=== PATIENT | male | born 1980 | race Caucasian/White ===

== ENCOUNTER 2018-10-17 07:38 | Day surgery (SDC) | payer MEDICAID, SELFPAY ==
--- NOTE | 2018-10-17 | GASB_PTH ---
PATIENT: NIC PINTO LOC: EN U#:[id number] AGE/SX: 38/M ROOM: RE10/17/[address]: Dr. Nic Mojica MD : 1980 BED: DIS: 10/17/2018 SPEC #: [id number] RECD: 10/17/18 11:15 STATUS: VANIA RYAN #: [id number] GUILHERME: 10/17/18 00:[address]: Nic Mojica DEPT: SURGICAL PATHOLOGY RECD BY: Cesar Key ENTERED: 10/17/18 11:15 SP TYPE: Gastric Bx OTHR DR: ELVIN Fraire Tissues: Gastric mucous membrane Procedures: Surgery Specimen Level IV HEADER OPERATION: Colonoscopy, EGD ([facility] [place] PRE[place]OP DIAGNOSIS: Personal history of colonic polyps, esophageal dysphagia TISSUE SUBMITTED: Antral biopsy and H. pylori MICROSCOPIC DIAGNOSIS Antral biopsy: Mild gastritis. See microscopic description and comment. SJ:yusuf 10/18/18 COMMENT The results of immunohistochemistry for Helicobacter pylori will be reported separately ([id number]). MICROSCOPIC DESCRIPTION Slides are reviewed. The specimen shows fragments of gastric mucosa with chronic inflammatory cell infiltrates in the lamina propria consisting of lymphocytes and plasma cells, consistent with mild chronic gastritis. GROSS DESCRIPTION Received in fixative is one container labeled with the patient's name and designated antral biopsy and H. pylori. The specimen consists of one irregular fragment of light eagle soft tissue that measures 0.6 x 0.2 x 0.1 cm. The specimen is totally submitted in one cassette. / SJ:rg 10/17/18 TC:3 CPT: 41294
[2018-10-17 07:54] VITALS: BP 103/67; PULSE 73; RESP 16; TEMP 37.1; O2SAT 97; BMI 25.7
--- NOTE | 2018-10-17 08:30 | IMM_PTH ---
PATIENT: NIC PINTO LOC: EN U#:[id number] AGE/SX: 38/M ROOM: RE10/17/[address]: Dr. Nic Mojica MD : 1980 BED: DIS: 10/17/2018 SPEC #: [id number] RECD: 10/17/18 11:36 STATUS: VANIA REQ #: [id number] GUILHERME: 10/17/18 08:[address]: Nic Mojica DEPT: IMMUNOHISTOCHEMISTRY RECD BY: Anjelica Cazares ENTERED: 10/17/18 11:36 SP TYPE: IMMUNO OTHR DR: ELVIN Fraire Tissues: Stomach, NOS Procedures: H Pylori (initial) PHYSICIAN & INSTITUTION [place] [id number] SPECIMEN INFORMATION: Tissue Source: Antral biopsy Clinical Info: Colonic polyps, esophageal dysphagia Specimen Number: [id number] CPT code: 53209 METHODOLOGY: Deparaffinized sections of prefer/formalin-fixed tissue or PAP/DQ stained slides are incubated with monoclonal/polyclonal antibodies/oligonucleotide probes. Localization is made via biotin free immunoperoxidase method. Appropriate controls are performed and reacted as expected. Results on target cell population are indicated in the following table: RESULTS: ANTIBODY / CLONE RESULT H Pylori (polyclonal) negative These tests were developed and their performance characteristics determined by [facility]. They may not have been cleared or approved by the U.S. Food and Drug Administration. The FDA has determined that such clearance or approval is not necessary. INTERPRETATION: Antral biopsy: Negative for Helicobacter pylori organisms. MEDARDO:yusuf 10/18/18
[2018-10-17 09:00] VITALS: BP 103/67; BP 88/57; PULSE 89; RESP 16; TEMP 36.4; O2SAT 98
--- NOTE | 2018-10-17 09:01 | OP.ENDO_ITS ---
Patient Name: Nic Velásquez Procedure Date: 10/17/2018 8:33 AM Date of : 1980 Age: 38 Procedure: Upper GI endoscopy Indications: Esophageal dysphagia Providers: Nic Mojica MD Medicines: See the Anesthesia note for documentation of the administered medications Patient Profile: This is a 38 year old male. Refer to note in patient chart for documentation of history and physical. Complications: No immediate complications. Procedure: Pre-Anesthesia Assessment: - Prior to the procedure, a History and Physical was performed, and patient medications and allergies were reviewed. The patient's tolerance of previous anesthesia was also reviewed. The risks and benefits of the procedure and the sedation options and risks were discussed with the patient. All questions were answered, and informed consent was obtained. Prior Anticoagulants: The patient has taken no previous anticoagulant or antiplatelet agents. ASA Grade Assessment: II - A patient with mild systemic disease. After reviewing the risks and benefits, the patient was deemed in satisfactory condition to undergo the procedure. After obtaining informed consent, the endoscope was passed under direct vision. Throughout the procedure, the patient's blood pressure, pulse, and oxygen saturations were monitored continuously. The gastroscope was introduced through the mouth, and advanced to the second part of duodenum. The upper GI endoscopy was accomplished without difficulty. The patient tolerated the procedure well. Scope In: 8:40:43 AM Scope Out: 8:44:35 AM Total Procedure Duration Time 0 hours 3 minutes 52 seconds Findings: A small hiatal hernia was present. Localized minimal inflammation characterized by erythema was found in the gastric antrum. Biopsies were taken with a cold forceps for Helicobacter pylori testing. The examined duodenum was normal. No biopsies or other specimens were collected for this exam. Impression: - Small hiatal hernia. - Gastritis. Biopsied. - Normal examined duodenum. No specimens collected. Recommendation: - Discharge patient to home. - Resume previous diet. - Continue present medications. - Await pathology results. - Perform routine esophageal manometry at appointment to be scheduled. Procedure Code(s): --- Professional --- 38419, Esophagogastroduodenoscopy, flexible, transoral; with biopsy, single or multiple Diagnosis Code(s): --- Professional --- K44.9, Diaphragmatic hernia without obstruction or gangrene K29.70, Gastritis, unspecified, without bleeding R13.14, Dysphagia, pharyngoesophageal phase CPT copyright 2017 [employer] [employer]. All rights reserved. The codes documented in this report are preliminary and upon anesthesiology crna review may be revised to meet current compliance requirements. MD Nic Jensen MD 10/17/2018 9:01:07 AM This report has been signed electronically. Number of Addenda: 0 Note Initiated On: 10/17/2018 8:33 AM
--- NOTE | 2018-10-17 09:03 | OP.ENDO_ITS ---
Patient Name: Nic Velásquez Procedure Date: 10/17/2018 8:44 AM Date of : 1980 Age: 38 Procedure: Colonoscopy Indications: High risk colon cancer surveillance: Personal history of colonic polyps Providers: Nic Mojica MD Medicines: See the Anesthesia note for documentation of the administered medications Patient Profile: This is a 38 year old male. Refer to note in patient chart for documentation of history and physical. Last Colonoscopy: 2011. Complications: No immediate complications. Procedure: Pre-Anesthesia Assessment: - Prior to the procedure, a History and Physical was performed, and patient medications and allergies were reviewed. The patient's tolerance of previous anesthesia was also reviewed. The risks and benefits of the procedure and the sedation options and risks were discussed with the patient. All questions were answered, and informed consent was obtained. Prior Anticoagulants: The patient has taken no previous anticoagulant or antiplatelet agents. ASA Grade Assessment: II - A patient with mild systemic disease. After reviewing the risks and benefits, the patient was deemed in satisfactory condition to undergo the procedure. - Prior to the procedure, a History and Physical was performed, and patient medications and allergies were reviewed. The patient's tolerance of previous anesthesia was also reviewed. The risks and benefits of the procedure and the sedation options and risks were discussed with the patient. All questions were answered, and informed consent was obtained. Prior Anticoagulants: The patient has taken no previous anticoagulant or antiplatelet agents. ASA Grade Assessment: II - A patient with mild systemic disease. After reviewing the risks and benefits, the patient was deemed in satisfactory condition to undergo the procedure. After I obtained informed consent, the scope was passed under direct vision. Throughout the procedure, the patient's blood pressure, pulse, and oxygen saturations were monitored continuously. The colonoscope was introduced through the anus and advanced to the cecum, identified by appendiceal orifice and ileocecal valve. The colonoscopy was performed without difficulty. The patient tolerated the procedure well. The quality of the bowel preparation was good. Scope In: 8:47:18 AM Scope Withdrawal Time 0 hours 6 minutes 10 seconds Scope Out: 8:57:09 AM Total Procedure Duration Time 0 hours 9 minutes 51 seconds Findings: The entire examined colon appeared normal on direct and retroflexion views. Impression: - The entire examined colon is normal on direct and retroflexion views. - No specimens collected. Recommendation: - Discharge patient to home. - Resume previous diet. - Continue present medications. - Repeat colonoscopy in 10 years for screening purposes. - Return to my office in 1 week. Procedure Code(s): --- Professional --- 65334, Colonoscopy, flexible; diagnostic, including collection of specimen(s) by brushing or washing, when performed (separate procedure) Diagnosis Code(s): --- Professional --- Z86.010, Personal history of colonic polyps CPT copyright 2017 [employer]. All rights reserved. The codes documented in this report are preliminary and upon tanyard worker review may be revised to meet current compliance requirements. MD Nic Jensen MD 10/17/2018 9:02:54 AM This report has been signed electronically. Number of Addenda: 0 Note Initiated On: 10/17/2018 8:44 AM
[2018-10-17 09:05] VITALS: BP 103/67; BP 97/51; PULSE 90; RESP 14; O2SAT 98
[2018-10-17 09:10] VITALS: BP 103/67; BP 78/59; PULSE 83; RESP 14; O2SAT 97
[2018-10-17 09:16] VITALS: BP 103/67; BP 91/66; PULSE 80; RESP 14; TEMP 36.5; O2SAT 98
[2018-10-17 09:53] VITALS: BP 103/67
== END 2018-10-17 09:54 | disposition home or self-care (01) ==
LOC: EN 07:39 → AC 07:41
PROVIDERS: Family Provider Physician Assistant; PCP Physician Assistant; Referring Provider Surgery; Visit Provider Surgery
PROC: 0DJD8ZZ Inspection of Lower Intestinal Tract, Via Natural or Artificial Opening Endoscopic (ICD-10-PCS; CPT 45378; principal; 2018-10-17 08:25)
DX: K29.50 Unspecified chronic gastritis without bleeding (principal); R13.14 Dysphagia, pharyngoesophageal phase; K44.9 Diaphragmatic hernia without obstruction or gangrene; Z86.010 Personal history of colon polyps
CPT/HCPCS: 43239; 45378; 88305; 88342; J7120; J2405

== ENCOUNTER → 2019-04-10 10:53 | Outpatient (CLI) | payer MEDICAID, SELFPAY ==
[2019-04-10 14:01] LABS: Amphetamine Urine VISTA NEGATIVE (<1000 ng/mL); Barbiturate Urine VISTA NEGATIVE (< 200 ng/mL); Benzodiazepine Urine VISTA NEGATIVE (< 200 ng/mL); Cocaine Urine VISTA NEGATIVE (< 300 ng/mL); Ecstacy Urine VISTA NEGATIVE (< 500 ng/mL); Methadone Urine VISTA NEGATIVE (< 300 ng/mL); PCP Urine VISTA NEGATIVE (< 25 ng/mL); THC Urine VISTA NEGATIVE (< 50 ng/mL); Vista UDS pH Range 6
== END ==
PROVIDERS: Family Provider Physician Assistant; PCP Physician Assistant; Referring Provider Registered Nurse; Visit Provider Registered Nurse
DX: F19.20 Other psychoactive substance dependence, uncomplicated (principal)
CPT/HCPCS: 80307

== ENCOUNTER 2021-07-02 14:36 | Emergency (ER) | payer MEDICAID, SELFPAY ==
[2021-07-02] VITALS (7 sets, daily range): BP systolic 103–178; BP diastolic 54–110; PULSE 71–117; RESP 15–18; TEMP 36.1; O2SAT 95–98; BMI 25.6
--- NOTE | 2021-07-02 15:16 | CT_ITS ---
EXAMINATION : Head CT w/out contrast HISTORY : Change in Mental Status COMPARISON : None. TECHNIQUE : Multiple contiguous axial images were obtained from the skull base to the vertex without intravenous contrast. A radiation dose optimization technique was used for this scan. FINDINGS : The ventricles and sulci are normal in size. There is no evidence for acute intracranial hemorrhage, mass effect, or midline shift. There is no extra-axial fluid collection. There is normal anton-white differentiation, without CT evidence of acute ischemia or infarct. The skull base and calvarium are unremarkable. The orbits are unremarkable. The paranasal sinuses are clear. The mastoid air cells are well-aerated. The soft tissues are unremarkable. CT/Brain/Head without Contrast IMPRESSION: No acute intracranial abnormality. Electronically Signed: Anant Mccarthy MD at 19:15 EDT Tel , Service support ,
--- NOTE | 2021-07-02 15:16 | EX.ED.VIS.PS ---
HPI <Dr. North Hong MD - Last Filed: 07/02/21 17:40> HPI - Psych History of Present Illness Chief Complaint: Mental Health Informant: patient Onset/Context/Timing Onset: - (unclear) Associated Symptoms Associated Symptoms - Psych: Positive for Confusion (I'm disoriented.), Paranoia and Auditory Hallucinations; Negative for Suicidal Thoughts and Visual Hallucinations Narrative Narrative: Patient presents saying that he feels he is dehydrated because he has not been drinking a lot of fluids although he denies having any vomiting, diarrhea, or any other obvious loss of fluids, and admittedly is paranoid. He states he also feels disoriented, and he is having trouble trusting people who are offering to help him. He states he has some auditory hallucinations and people are watching him from above, at one point he told triage that he needed to speak to someone with the [employer]. He said someone gave him a crystal that he partially ingested and partially inhaled and he thinks it might be messing with him and he needs to know what it was. Other than this he has used no substances intentionally. When asked about his medical history, he states that it is not important and he will talk to me about it when he is right in the head. He also states when asked multiple questions especially about illicit substance use, that there is a conspiracy to make me part of a conspiracy. [facility] <Dr. North Hong MD - Last Filed: 07/02/21 17:40> [facility] Medical History (Updated 07/02/21 @ 22:[address] Rik Rojo MD) Abdominal pain Asthma Esophageal reflux RONNY (obstructive sleep apnea) Home Medications omeprazole 20 mg PO DAILY 07/03/16 [History Last Taken 10/16/18] albuterol sulfate 90 mcg/actuation aerosol inhaler 2 puff INHALATION Q6H PRN 09/21/18 [History Last Taken Unknown] aripiprazole 5 mg tablet 5 mg PO DAILY 09/21/18 [History Last Taken 10/16/18] bisacodyl 5 mg tablet,delayed release 20 mg PO ONCE #4 tab 09/21/18 [Rx Last Taken 10/16/18] polyethylene glycol 3350 17 gram/dose oral powder See Rx Instructions PO .COMPLEX #238 g 09/21/18 [Rx Last Taken 10/16/18] Allergy/AdvReac Type Severity Reaction Status Date / Time No Known Allergies Allergy Verified 07/02/21 14:40 Surgical History Hx of colonoscopy Hx of right inguinal hernia repair Hx of tooth extraction Hx of varicose vein ligation and stripping Social History Smoking Status: Current every day smoker tobacco type: cigarettes second hand exposure: Yes alcohol intake: never substance use type: methamphetamine caffeine: Yes frequency: does not exercise ROS <Dr. North Hong MD - Last Filed: 07/02/21 17:40> ROS ED Constitutional Constitutional ED: Denies chills or fever(s) Eyes Eyes: Denies change in vision or diplopia ENT ENT ED: Denies rhinorrhea or sore throat Cardiovascular Cardiovascular: Denies chest pain or palpitations Respiratory/Chest Respiratory/Chest: Denies cough or dyspnea Gastrointestinal Gastrointestinal: Denies abdominal pain, diarrhea, nausea or vomiting Genitourinary Genitourinary ED: Denies dysuria or hematuria Musculoskeletal Musculoskeletal: Denies back pain or neck pain Integumentary Denies abscess or rash Neurologic Neurologic: Denies headache(s), paresthesias or weakness Psychiatric Psychiatric: Reports anxiety, auditory hallucinations, confusion and paranoia; Denies homicidal ideation, suicidal ideation or suicidal thoughts EXAM <Dr. North Hong MD - Last Filed: 07/02/21 17:40> Physical Exam Const Vital Signs: 07/02/21 14:36 07/02/21 16:00 07/02/21 17:00 Temperature 96.9 F L Temperature Source Temporal Pulse Rate 117 H Respiratory Rate 18 17 16 Blood Pressure 178/110 H Blood Pressure Mean 132 Pulse Ox 97 Oxygen Delivery Method Room Air Room Air Room Air 07/02/21 18:00 07/02/21 19:25 07/02/21 21:34 Temperature Temperature Source Pulse Rate 103 H 71 Respiratory Rate 16 15 15 Blood Pressure 103/62 126/54 H Blood Pressure Mean 75 78 Pulse Ox 95 98 Oxygen Delivery Method Room Air Room Air Room Air Positive well nourished and well developed General Appearance ED: well developed and NAD HEENT Reports moist mucous membranes normocephalic and atraumatic Eyes PERRL and EOMs intact bilaterally General Eye ED: Negative for scleral icterus Neck no lymphadenopathy and supple Resp normal respiratory effort and clear to auscultation bilaterally Cardio no murmurs Rate: regular rate Rhythm: regular rhythm GI non-tender and non-distended Auscultation: normoactive bowel sounds Palpation: soft Back/Spine no CVA tenderness and normal ROM Extremity normal to inspection General Extremety ED: Negative for edema General Extremity: Negative for edema Neuro oriented x3, CN's II-XII intact bilaterally, no sensory deficits noted and gait normal Sensorium / Orientation: alert Motor Exam: strength 5/5 throughout Psych cooperative and denies homicidal ideation Attitude: paranoid and agitated Activity / Motor Behavior: appropriate eye contact, psychomotor agitation, disorganized and restless Thought Process: disorganized and loose associations Thought Content: No suicidality Skin Lesions: no lesions Rashes: no rashes <Dr. Rik Rojo MD - Last Filed: 07/02/21 22:55> Physical Exam Const Vital Signs: 07/02/21 14:36 07/02/21 16:00 07/02/21 17:00 Temperature 96.9 F L Temperature Source Temporal Pulse Rate 117 H Respiratory Rate 18 17 16 Blood Pressure 178/110 H Blood Pressure Mean 132 Pulse Ox 97 Oxygen Delivery Method Room Air Room Air Room Air 07/02/21 18:00 07/02/21 19:25 07/02/21 21:34 Temperature Temperature Source Pulse Rate 103 H 71 Respiratory Rate 16 15 15 Blood Pressure 103/62 126/54 H Blood Pressure Mean 75 78 Pulse Ox 95 98 Oxygen Delivery Method Room Air Room Air Room Air MDM <Dr. North Hong MD - Last Filed: 07/02/21 17:40> [facility] Narrative Medical decision making narrative: Patient is mildly prerenal for which he was given a liter of IV fluids, a dose of oral potassium was offered to him, and he has a mild leukocytosis for which a urinalysis and chest x-ray were obtained. Patient was amenable to taking a dose of potassium, but he was very apprehensive about getting a CT of the head, and stated to the diesel technician I do not consent. Therefore I held off on that instead of pushing the issue, I do not think an acute neurologic process is likely here. The patient is agitated. He is swelling to give us urine, but after trying he was unable. He is drinking fluids and almost done with a liter of IV fluids so that he is able to give us a specimen. Also attempting to obtain a Covid swab to rule that out. At this time, I am concerned patient has a primary psychiatric issue, and after medical testing is complete, plan is to have crisis evaluate for further psychiatric evaluation/transfer. Checked out to oncoming emergency physician at shift change. Lab Data Attestation: I reviewed the patient's lab results. Labs: Laboratory Results - last 24 hr 07/02/21 07/02/21 07/02/21 15:30 15:30 15:30 WBC 16.2 H RBC 5.29 Hgb 16.9 H Hct 47.8 MCV 90.4 MCH 31.9 MCHC 35.4 RDW Std Deviation 41.0 RDW Coeff of David 12.7 Plt Count 335 MPV 9.1 Immature Gran % (Auto) 0.500 Neut % (Auto) 73.9 H Lymph % (Auto) 15.8 L [place] % (Auto) 9.5 Eos % (Auto) 0.1 Baso % (Auto) 0.2 Absolute Neuts (auto) 12.0 H Absolute Lymphs (auto) 2.55 Nucleated RBC % 0 Differential Comment Diff Path Review May foll Platelet Estimate ADEQUATE RBC Morphology NORM C+C Sodium 143 Potassium 3.4 L Chloride 108 H Carbon Dioxide 27.0 Anion Gap 8 BUN 19 H Creatinine 1.19 Estim Creat Clear Calc 88.76 Est GFR (MDRD) Af Amer 86 Est GFR (MDRD) Non-Af 71 BUN/Creatinine Ratio 16.0 Glucose 105 Calcium 9.7 Total Bilirubin 1.20 H AST 44 H ALT 51 Alkaline Phosphatase 72 Total Protein 8.1 Albumin 4.7 Globulin 3.4 Albumin/Globulin Ratio 1.4 TSH 0.46 Urine Color Urine Clarity Urine pH Ur Specific [place] Urine Protein Urine Glucose (UA) Urine Ketones Urine Occult Blood Urine Nitrite Urine Bilirubin Urine Urobilinogen Ur Leukocyte Esterase Urine RBC Urine WBC Ur Squamous Epith Cells Urine Bacteria Hyaline Casts Urine Mucus Urine Opiates Screen Urine Methadone Screen Ur Barbiturates Screen Ur Phencyclidine Scrn Ur Amphetamines Screen U Methamphetamin-MDMA U Benzodiazepines Scrn Urine Cocaine Screen U Cannabinoids Screen Ur Drug Screen Comment Ethyl Alcohol 8.0 07/02/21 07/02/21 18:40 18:40 WBC RBC Hgb Hct MCV MCH MCHC RDW Std Deviation RDW Coeff of David Plt Count MPV Immature Gran % (Auto) Neut % (Auto) Lymph % (Auto) [place] % (Auto) Eos % (Auto) Baso % (Auto) Absolute Neuts (auto) Absolute Lymphs (auto) Nucleated RBC % Differential Comment Diff Path Review Platelet Estimate RBC Morphology Sodium Potassium Chloride Carbon Dioxide Anion Gap BUN Creatinine Estim Creat Clear Calc Est GFR (MDRD) Af Amer Est GFR (MDRD) Non-Af BUN/Creatinine Ratio Glucose Calcium Total Bilirubin AST ALT Alkaline Phosphatase Total Protein Albumin Globulin Albumin/Globulin Ratio TSH Urine Color Yellow Urine Clarity Clear Urine pH 6.0 Ur Specific [place] 1.020 Urine Protein 30 H Urine Glucose (UA) Normal Urine Ketones 5 H Urine Occult Blood 25 H Urine Nitrite Negative Urine Bilirubin Negative Urine Urobilinogen Normal Ur Leukocyte Esterase Negative Urine RBC 0 SEEN Urine WBC 0 SEEN Ur Squamous Epith Cells 0 SEEN Urine Bacteria 0 SEEN Hyaline Casts 0-5 SEEN Urine Mucus 0 SEEN Urine Opiates Screen NEGATIVE Urine Methadone Screen NEGATIVE Ur Barbiturates Screen NEGATIVE Ur Phencyclidine Scrn NEGATIVE Ur Amphetamines Screen POSITIVE H U Methamphetamin-MDMA POSITIVE H U Benzodiazepines Scrn NEGATIVE Urine Cocaine Screen NEGATIVE U Cannabinoids Screen NEGATIVE Ur Drug Screen Comment Ethyl Alcohol Radiography Diagnostic Testing: Radiology Impression Brain CT 07/02/21 15:16 IMPRESSION: No acute intracranial abnormality. Electronically Signed: Anant Mccarthy MD at 19:15 EDT Tel , Service support , Chest X-Ray 07/02/21 18:55 IMPRESSION: Normal x-ray examination of the chest. Electronically Signed: North Liang MD at 19:23 EDT , Service support , Rhythm Strip Rhythm Strip: Sinus Tach Rate: 110 Ectopy: None <Dr. Rik Rojo MD - Last Filed: 07/02/21 22:55> [facility] MDM Narrative Medical decision making narrative: Patient would not cooperate and allow nursing staff for radiology staff to perform CAT scan that was ordered. Patient was medicated to facilitate this. He also was cathed for his urine. Tox is positive for amphetamines and methamphetamines. CT was unremarkable. [facility] is seeing him for placement for acute psychosis. Patient has been much more cooperative and less resistant after he was medicated. older worker specialist from [facility] did evaluate patient. She is in agreement that his behavior is drug induced. He is engaged now cooperative. He would like detox. We will give number to call [phone] Lab Data Attestation: I reviewed the patient's lab results. Lab results narrative: Tox screen is positive for methamphetamine and amphetamines. This may have contributed to his psychosis. Labs: Laboratory Results - last 24 hr 07/02/21 07/02/21 07/02/21 15:30 15:30 15:30 WBC 16.2 H RBC 5.29 Hgb 16.9 H Hct 47.8 MCV 90.4 MCH 31.9 MCHC 35.4 RDW Std Deviation 41.0 RDW Coeff of David 12.7 Plt Count 335 MPV 9.1 Immature Gran % (Auto) 0.500 Neut % (Auto) 73.9 H Lymph % (Auto) 15.8 L [place] % (Auto) 9.5 Eos % (Auto) 0.1 Baso % (Auto) 0.2 Absolute Neuts (auto) 12.0 H Absolute Lymphs (auto) 2.55 Nucleated RBC % 0 Differential Comment Diff Path Review May foll Platelet Estimate ADEQUATE RBC Morphology NORM C+C Sodium 143 Potassium 3.4 L Chloride 108 H Carbon Dioxide 27.0 Anion Gap 8 BUN 19 H Creatinine 1.19 Estim Creat Clear Calc 88.76 Est GFR (MDRD) Af Amer 86 Est GFR (MDRD) Non-Af 71 BUN/Creatinine Ratio 16.0 Glucose 105 Calcium 9.7 Total Bilirubin 1.20 H AST 44 H ALT 51 Alkaline Phosphatase 72 Total Protein 8.1 Albumin 4.7 Globulin 3.4 Albumin/Globulin Ratio 1.4 TSH 0.46 Urine Color Urine Clarity Urine pH Ur Specific [place] Urine Protein Urine Glucose (UA) Urine Ketones Urine Occult Blood Urine Nitrite Urine Bilirubin Urine Urobilinogen Ur Leukocyte Esterase Urine RBC Urine WBC Ur Squamous Epith Cells Urine Bacteria Hyaline Casts Urine Mucus Urine Opiates Screen Urine Methadone Screen Ur Barbiturates Screen Ur Phencyclidine Scrn Ur Amphetamines Screen U Methamphetamin-MDMA U Benzodiazepines Scrn Urine Cocaine Screen U Cannabinoids Screen Ur Drug Screen Comment Ethyl Alcohol 8.0 07/02/21 07/02/21 18:40 18:40 WBC RBC Hgb Hct MCV MCH MCHC RDW Std Deviation RDW Coeff of David Plt Count MPV Immature Gran % (Auto) Neut % (Auto) Lymph % (Auto) [place] % (Auto) Eos % (Auto) Baso % (Auto) Absolute Neuts (auto) Absolute Lymphs (auto) Nucleated RBC % Differential Comment Diff Path Review Platelet Estimate RBC Morphology Sodium Potassium Chloride Carbon Dioxide Anion Gap BUN Creatinine Estim Creat Clear Calc Est GFR (MDRD) Af Amer Est GFR (MDRD) Non-Af BUN/Creatinine Ratio Glucose Calcium Total Bilirubin AST ALT Alkaline Phosphatase Total Protein Albumin Globulin Albumin/Globulin Ratio TSH Urine Color Yellow Urine Clarity Clear Urine pH 6.0 Ur Specific [place] 1.020 Urine Protein 30 H Urine Glucose (UA) Normal Urine Ketones 5 H Urine Occult Blood 25 H Urine Nitrite Negative Urine Bilirubin Negative Urine Urobilinogen Normal Ur Leukocyte Esterase Negative Urine RBC 0 SEEN Urine WBC 0 SEEN Ur Squamous Epith Cells 0 SEEN Urine Bacteria 0 SEEN Hyaline Casts 0-5 SEEN Urine Mucus 0 SEEN Urine Opiates Screen NEGATIVE Urine Methadone Screen NEGATIVE Ur Barbiturates Screen NEGATIVE Ur Phencyclidine Scrn NEGATIVE Ur Amphetamines Screen POSITIVE H U Methamphetamin-MDMA POSITIVE H U Benzodiazepines Scrn NEGATIVE Urine Cocaine Screen NEGATIVE U Cannabinoids Screen NEGATIVE Ur Drug Screen Comment Ethyl Alcohol Radiography Diagnostic Testing: Radiology Impression Brain CT 07/02/21 15:16 IMPRESSION: No acute intracranial abnormality. Electronically Signed: Anant Mccarthy MD at 19:15 EDT Tel , Service support , Chest X-Ray 07/02/21 18:55 IMPRESSION: Normal x-ray examination of the chest. 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 Instructions: Understanding Methamphetamine ..., ED Psychosis Prescriptions: No Action aripiprazole [Abilify] 5 mg tablet 5 mg PO DAILY RF: 0 Ventolin HFA 90 mcg/actuation HFA aerosol inhaler 2 puff INHALATION Q6H PRN (Reason: Asthma) RF: 0 bisacodyl [Dulcolax (bisacodyl)] 5 mg tablet,delayed release (DR/EC) 20 mg PO ONCE Qty: 4 RF: 0 polyethylene glycol 3350 [Miralax] 17 gram/dose powder See Rx Instructions PO .COMPLEX Qty: 238 RF: 0 omeprazole 20 MG capsule 20 mg PO DAILY RF: 0 Primary Care Provider: Shahzad Miller Referrals: [facility] [STAFF PHYSICIAN] - As soon as possible Shahzad Miller, PA [Primary Care Provider] - Activity Restrictions/Additional Instructions: Call 180 tonight to help facilitate treatment for drug addiction Disposition Disposition: Home, Self Care
[2021-07-02] MEDS: 0.9% Normal Saline 1,000 ML 999 ML IV (15:25)
[2021-07-02 15:46] LABS: Absolute Lymphocyte Count 2.55 X10^3/uL (0.83-4.51); Basophil# 0.04 X10^3/uL; Basophil% 0.2 % (0-1); Eosinophil# 0.01 X10^3/uL; Eosinophils% 0.1 % (0-5); Hematocrit 47.8 % (40-54); Hemoglobin 16.9 g/dL (13.0-16.5); Lymphocyte # 2.55 X10^3/ul (0.83-4.51); Lymphocyte % 15.8 % (19-41); Mean Corp Hgb Conc 35.4 g/dL (32-36); Mean Corpuscular Hgb 31.9 pg (27.0-32.0); Mean Corpuscular Volume 90.4 fL (80-94); Mean Platelet Vol. 9.1 fl (6.2-12.0); Monocyte# 1.54 X10^3/uL; Monocyte% 9.5 % (0-10); NRBC Flagged by Analyzer 0 % (0-5); Neutrophil # 11.96 X10^3/uL (2.7-7.7); Neutrophil % 73.9 % (47-70); POSITIVE DIFFERENTIAL YES; Platelet Count 335 K/mm3 (150-450); RBC Distribution Width CV 12.7 % (11.6-14.6); Red Blood Count 5.29 M/mm3 (4.6-6.2); White Blood Count 16.2 K/mm3 (4.4-11.0)
[2021-07-02 15:58] LABS: Differential Indicated SCAN CRITERIA MET
[2021-07-02 16:10] LABS: ALB/GLOB Ratio 1.4 RATIO (0.9-2.4); AST(SGOT) 44 U/L (15-37); Alanine Aminotransfer ALT/SGPT 51 U/L (16-61); Albumin, Serum 4.7 g/dL (3.2-5.0); Alkaline Phosphatase 72 U/L (45-117); Anion Gap 8 (5-15); BUN 19 mg/dL (7-18); Calcium,Total 9.7 mg/dL (8.5-10.1); Chloride 108 mmol/L (98-107); Creatinine, Serum 1.19 mg/dL (0.70-1.30); EST Glomerular Filtration Rate 71 mL/min (>60); Est Glom Filt Rate - Afr Amer 86 mL/min (>60); Estimated Creatinine Clearance 88.76 ml/min; Globulin 3.4 g/dL (2.2-4.2); Glucose 105 mg/dL (74-106); Potassium 3.4 mmol/L (3.5-5.1); Protein, Total 8.1 g/dL (6.4-8.2); Sodium Level 143 mmol/L (136-145); Thyroid Stim Hormone (TSH) 0.46 uIU/mL (0.358-3.74)
[2021-07-02 16:43] LABS: Platelet Estimate ADEQUATE (ADEQ)
[2021-07-02 16:44] LABS: Red Cell Morphology NORM C+C NORMAL (NORM C&C)
[2021-07-02] MEDS: Potassium Chloride Oral Tablet 20 MEQ PO (17:05)
[2021-07-02] MEDS: Ziprasidone IM 20 MG/ML VIAL IM (18:12)
--- NOTE | 2021-07-02 18:55 | RAD_ITS ---
STUDY: X-RAY CHEST REASON FOR EXAM: Male, 40 years old. Altered mental status TECHNIQUE: Single AP portable view of the chest. COMPARISON: None. FINDINGS: The lungs are clear and expanded. There is no demonstrated pleural abnormality. Normal size heart. Normal mediastinum and stephen. Normal visualized pulmonary arteries. Normal visualized aortic arch and descending thoracic aorta. Normal visualized thoracic spine. Normal visualized ribs, clavicles, and shoulders. There is no demonstrated abnormality of the visualized soft tissue structures of the upper abdomen. RAD/Chest 1 View (Portable) IMPRESSION: Normal x-ray examination of the chest. Electronically Signed: North Liang MD at 19:23 EDT , Service support ,
[2021-07-02 18:58] LABS: Bacteria 0 SEEN /hpf (None Seen); Mucous, Urine 0 SEEN /hpf (<or=2+); Red Blood Cells-Urine 0 SEEN /hpf (0-5); Squamous Epithelial Cells - UA 0 SEEN /hpf (0-5); White Blood Cells 0 SEEN /hpf (0-5)
[2021-07-02 18:59] LABS: Color, Urine Yellow (Yellow); Glucose, Dipstick Normal (Normal); Ketone-Dipstick 5 mg/dl (Negative); Leukocyte Esterase-Dipstick Negative /ul (Negative); Nitrite-Dipstick Negative (Negative); Occult Blood-Urine 25 /ul (Negative); Protein-Dipstick 30 mg/dl (Negative); Urine Bilirubin Dipstick Negative (Negative); Urine Clarity Clear (Clear); Urine Urobilinogen Normal (Normal)
[2021-07-02 19:10] LABS: Amphetamine Urine VISTA POSITIVE (<1000 ng/mL); Barbiturate Urine VISTA NEGATIVE (< 200 ng/mL); Benzodiazepine Urine VISTA NEGATIVE (< 200 ng/mL); Cocaine Urine VISTA NEGATIVE (< 300 ng/mL); Ecstacy Urine VISTA POSITIVE (< 500 ng/mL); Methadone Urine VISTA NEGATIVE (< 300 ng/mL); PCP Urine VISTA NEGATIVE (< 25 ng/mL); THC Urine VISTA NEGATIVE (< 50 ng/mL); Vista UDS pH Range 6
[2021-07-02 19:19] LABS: Hyaline Cast 0-5 SEEN /lpf (0-5)
--- NOTE | 2021-07-02 22:02 | ED.RN ---
CALLED [facility] TO SEE THIS PT, NICK IS NET LEAD DEVELOPER
[2021-07-03 10:52] LABS: Pathologist Review Reviewed
== END 2021-07-02 23:04 | disposition home or self-care (01) ==
PROVIDERS: Emergency Provider Emergency Medicine; PCP Physician Assistant
DX: F15.951 Other stimulant use, unspecified with stimulant-induced psychotic disorder with hallucinations (principal); G47.33 Obstructive sleep apnea (adult) (pediatric); J45.909 Unspecified asthma, uncomplicated; F17.210 Nicotine dependence, cigarettes, uncomplicated
CPT/HCPCS: 70450; 71045; 80053; 80307; 81001; 82077; 84443; 85025; 87426; 96360; 96361; 96372; 99285; J7030; A4216; J3486